=== PATIENT | male | born 1990 | race Caucasian/White ===

== ENCOUNTER 2016-07-25 19:22 | Emergency (ER) | payer SELFPAY ==
[~2016-07-25] VITALS: Ht 182.9 cm; Wt 59.3 kg
[~2016-07-25 19:22] MED LIST: LORTA5 PO; NAPR-571 PO
[2016-07-25 19:42] VITALS: BP 129/61; PULSE 60; RESP 14; TEMP 98.7; O2SAT 97
[2016-07-25] MEDS ORDERED: CETI10 PO (20:57)
[2016-07-25] MEDS ORDERED: FLUT50SP EACH NARE (20:57)
--- NOTE | 2016-07-25 20:57 | PD ---
HPI Chief Complaint: Cold / Flu Symptoms Time Seen by Provider: 20:52 Travel History International Travel<30 days: No Contact w/Intl Traveler<30days: No Traveled to known affect area: No History of Present Illness HPI Patient is a 26-year-old male presenting to the emergency department for evaluation of a cough. Cough has been present for 2 weeks, he has mild nasal congestion. He denies any fever, chills, headache, shortness of breath, chest pain. Cough is worse at night. He has no other complaints at this time. Patient is a nonsmoker but he does endorse occasional marijuana use. [facility] Past Medical History Medical History: Denies Significant Hx Influenza Vaccination: No ?: Not Social History Alcohol Use: Yes (RARELY) Tobacco Use: No (1 TO 2 CIGS PER MONTH) Substance Use: Yes (marijuana) Allergies-Medications (Allergen,Severity, Reaction): Coded Allergies: No Known Allergies (Unverified , 07/25/16) Reported Meds & Prescriptions Reported Meds & Active Scripts Active Review of Systems Except as stated in HPI: all other systems reviewed are Neg HENT: Positive: Rhinitis, Congestion Respiratory: Positive: Cough, Pleuritic Pain Physical Exam Narrative GENERAL: Well-nourished, well-developed patient. SKIN: Focused skin assessment warm/dry. HEAD: Normocephalic. EYES: No scleral icterus. No injection or drainage. ENT: Mucosa pink and moist. No erythema or exudates. No uvular edema. No uvular , palatal, or tonsillar deviation. Airway patent. Nasal turbinates appear normal without nasal blood, purulent drainage or septal hematoma. Cobblestone appearance to posterior pharynx. NECK: Supple, trachea midline. No JVD or lymphadenopathy. CARDIOVASCULAR: Regular rate and rhythm without murmurs, gallops, or rubs. RESPIRATORY: Breath sounds equal bilaterally. No accessory muscle use. GASTROINTESTINAL: Abdomen soft, non-tender, nondistended. MUSCULOSKELETAL: No cyanosis, or edema. BACK: Nontender without obvious deformity. No CVA tenderness. Data Data Last Documented VS Vital Signs Date Time Temp Pulse Resp B/P Pulse Ox O2 Delivery O2 Flow Rate FiO2 07/25/16 19:42 98.7 60 14 129/61 97 Room Air MDM Medical Decision Making Medical Screen Exam Complete: Yes Emergency Medical Condition: Yes Interpretation(s) Vital Signs Date Time Temp Pulse Resp B/P Pulse Ox O2 Delivery O2 Flow Rate FiO2 07/25/16 19:42 98.7 60 14 129/61 97 Room Air Differential Diagnosis Bronchitis versus pneumonia versus allergic rhinitis versus URI versus other Narrative Course Patient presents emergency Department with 2 weeks of a dry nonproductive cough is worse at night accompanied by mild nasal congestion and postnasal drip. Physical examination is symptomology. Vital Signs are stable. Most consistent with allergic rhinitis. Patient will be started on fluticasone nasal spray and cetirizine. He is encouraged to follow-up with her primary doctor. He is encouraged to take medications consistently as a work better over time. He verbalized understanding of these instructions. Additionally [facility]. Patient stable for discharge. Diagnosis Primary Impression: Allergic rhinitis due to allergen Qualified Code: J30.9 - Allergic rhinitis, unspecified allergic rhinitis trigger, unspecified rhinitis seasonality Referrals: [facility] Physician Patient Instructions: Allergic Rhinitis (ED), General Instructions Additional Instructions: Follow-up with a primary doctor or at the [facility] clinic Return to emergency department for any new or worsening symptoms Take medications as directed and consistently for best effect Med/Other Pt SpecificInfo: Prescription(s) given Scripts Cetirizine 10 Mg Tab10 Mg PO HS 30 Days Ref 0 Prov:Mara Oreilly 07/25/16 Fluticasone Nasal Boyce 50 Mcg/Act [id number] Mcg EACH NARE DAILY #1 BOTTLE Ref 0 50 mcg/spray Prov:Mara Oreilly 07/25/16 Disposition: 01 DISCHARGE HOME Condition: Stable Mara Oreilly Jul 25, 2016 20:57
== END 2016-07-25 21:01 | disposition home or self-care (01) ==
LOC: PHEFT 19:22
DX: J30.9 Allergic rhinitis, unspecified (principal); R05 Cough; Z72.0 Tobacco use
CPT/HCPCS: 99283